=== PATIENT | female | born 1990 | race Caucasian/White ===

== ENCOUNTER 2017-12-20 09:43 | Emergency (ER) | payer SELFPAY ==
[2017-12-20 10:08] VITALS: BP 147/78
--- NOTE | 2017-12-20 11:14 | ED Physician Documentation ---
Upper Respiratory Symptoms - HISTORIAN Historian: patient - HPI Stated Complaint: short of air, cough, achy, pain in chest with cough Chief Complaint: Cough/ Upper Respiratory Additional Information: Patient developed some generalized heaviness in chest area. Today developed a cough, nonproductive in nature. Having some bilat chest pain with coughing. Having some green bloody nasal drainage. Has been having some low bialteral back pain, when she cough it radiates into the mid back area bilat. Having some achiness all over. No fever chills. Has been exposed to the flu. Onset: days ago (2 days) Context: denies: recent foreign travel Severity: moderate Associated Symptoms: shortness of breath (mild), hurts to breathe. denies: fever, chills, sweating, bloody cough, productive cough Worsened by Deep Breath: Yes Further Comments: no - ROS CONST/EYES: weakness MS/SKIN: denies: muscle aches, rash - PAST HX Lung Disease: none PE Risk Factors: none. denies: hypertension, hx DVT, recent surgery, bedridden , hx of PE Surgeries/Procedures: none Allergies/Adverse Reactions: Allergies Allergy/AdvReac Type Severity Reaction Status Date / Time acetaminophen [From Vicodin] Allergy Unverified 09/15/16 15:26 hydrocodone bitartrate Allergy Unverified 09/15/16 15:26 [From Vicodin] Home Medications: Ambulatory Orders Medication Instructions Recorded Azithromycin [Zithromax] 250 mg PO DIRECTED #6 tablet 12/20/17 - SOCIAL HX Smoking History: non-smoker, less than 1 pack/day Alcohol Use: none Drug Use: none - FAMILY HX Family History: no significant history - VITAL SIGNS Vital Signs: Vital Signs Temp Pulse Resp BP Pulse Ox 97.2 F L 89 20 147/78 96 12/20/17 14:47 12/20/17 14:47 12/20/17 14:47 12/20/17 14:47 12/20/17 14:47 - REVIEWED ASSESSMENTS Nursing Assessment Reviewed: Yes Vitals Reviewed: Yes ED Results Lab/Radiology - Lab Results Lab Results: Lab Results 12/20/17 12/20/17 12/20/17 12:45 12:45 11:15 WBC 8.10 K/ul K/ul (4.00-12.00) RBC 4.31 M/ul M/ul (3.90-5.20) Hgb 13.0 g/dL g/dL (12.0-16.0) Hct 38.4 % % (34.5-46.5) MCV 89.2 fl fl (80.0-100.0) MCH 30.2 pg pg (28.0-34.0) MCHC 33.8 g/dL g/dL (30.0-36.0) RDW 12.9 % % (11.3-14.3) Plt Count 212 K/mm3 K/mm3 (130-400) Neut % (Auto) 64.3 % % (39.0-79.0) Lymph % (Auto) 24.8 % % (16.0-50.0) [place] % (Auto) 3.9 % % (0.0-11.0) Eos % (Auto) 4.9 % % (0.0-6.8) Baso % (Auto) 0.7 (0.0-1.5) Neut # (Auto) 5.2 # k/uL # k/uL (1.4-7.7) Lymph # (Auto) 2.0 # k/uL # k/uL (0.6-4.0) [place] # (Auto) 0.3 # k/uL # k/uL (0.0-0.9) Eos # (Auto) 0.4 # k/uL # k/uL (0.0-0.6) Baso # (Auto) 0.1 # k/uL # k/uL (0.0-0.5) Reactive Lymphs % 1.3 % % (0.0-5.0) Reactive Lymphs # 0.1 # k/uL # k/uL (0.0-0.8) Sodium 142 mmol/L mmol/L (136-145) Potassium 3.9 mmol/L mmol/L (3.5-5.1) Chloride 104 mmol/L mmol/L (98-107) Carbon Dioxide 25 mmol/L mmol/L (22-30) BUN 13 mg/dL mg/dL (7-17) Creatinine 0.60 mg/dL mg/dL (0.52-1.04) Estimated Creat Clear 275 Est GFR ( Amer) > 60 (60 - ) Est GFR (Non-Af Amer) > 60 (60 - ) Glucose 80 mg/dL mg/dL (74-106) Calcium 9.5 mg/dL mg/dL (8.4-10.2) Total Bilirubin 0.6 mg/dL mg/dL (0.2-1.3) AST 20 U/L U/L (15-46) ALT 37 U/L U/L (13-69) Alkaline Phosphatase 88 U/L U/L (38-126) Total Protein 7.5 g/dL g/dL (6.3-8.2) Albumin 4.3 g/dL g/dL (3.5-5.0) Urine Color Yellow (YELLOW) Urine Appearance Clear (CLEAR) Urine pH 5.5 (5.0 - 8.0) Ur Specific [place] >=1.030 H (1.010-1.030) Urine Protein Negative mg/dL mg/dL (NEGATIVE) Urine Ketones Negative mg/dL mg/dL (NEGATIVE) Urine Occult Blood Trace-intact H (NEGATIVE) Urine Nitrite Negative (NEGATIVE) Urine Bilirubin Negative (NEGATIVE) Urine Urobilinogen 0.2 Eu Eu (0.2-1.0) Ur Leukocyte Esterase Trace H (NEGATIVE) Urine Glucose Negative mg/dL mg/dL (NEGATIVE) Urine HCG, Qual Negative (NEGATIVE) - Radiology Radiology Impressions: Examination: PA and lateral chest. History: Evaluate lung muir. Findings: PA lateral chest demonstrate a normal cardiac and mediastinal silhouette. No focal infiltrate. No blunting of the costophrenic margins. Osseous structures are appropriate for age. Impression: No acute pulmonary process. - Orders Orders: ED Orders Category Date Time Status CHEST P.A.&LAT 2 VIEWS [RAD] Routine Exams 12/20/17 Completed CBC/PLATELET/DIFF Routine Lab 12/20/17 12:45 Completed CMP Routine Lab 12/20/17 12:45 Completed UA MACRO DIP ONLY Routine Lab 12/20/17 11:15 Completed URINE HCG Routine Lab 12/20/17 11:15 Completed Upper Respiratory Symptoms - EXAM General Appearance: alert, mild distress EENT: eyes nml inspection, nml ENT inspection, ear nml, rhinorrhea (slight yellow), pharynx nml. No: pain over sinuses Neck: normal inspection, supple Respiratory: no resp. distress, breath sounds nml, no pain on inspiration, speaks full sentences CVS: reg rate & rhythm, heart sounds normal, equal pulses, no murmur Skin: color nml, no rash, warm,dry, cyanosis Extremities: non-tender, normal range of motion, no evidence of injury Neuro/Psych: oriented x3, neuro intact, mood/affect nml Discharge Clincal Impression: Bronchitis Prescriptions: Azithromycin [Zithromax] 250 mg PO DIRECTED #6 tablet Referrals: Slim Shell [Primary Care Provider] - 2 Days Additional Instructions: Drink a lot of fluids, take Azithromycin s directed. If you continue to have problems to follow-up with your primary care provider. Disposition: HOME, SELF-CARE Decision to Admit: NO Date of Decison to Admit: 12/20/17 Decision Time: 13:19
[2017-12-20 11:49] LABS: BASOPHILS % 0.7 (0.0-1.5); EOSINOPHILS % 4.9 % (0.0-6.8); MEAN CORPUSCULAR HEMOGLOBIN 30.2 pg (28.0-34.0); MEAN CORPUSCULAR VOLUME 89.2 fl (80.0-100.0); MONOCYTES % 3.9 % (0.0-11.0); NEUTROPHILS # 5.2 # k/uL (1.4-7.7)
[2017-12-20 12:07] LABS: eGFR (African) > 60; eGFR (Non-African) > 60
--- NOTE | 2017-12-20 12:40 | Diagnostic Imaging Report ---
MIGUEL ANGEL HIDALGO [facility] [address] [facility].[address] 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 History: Evaluate lung muir. Findings: PA lateral chest demonstrate a normal cardiac and mediastinal silhouette. No focal infiltrate. No blunting of the costophrenic margins. Osseous structures are appropriate for age. Impression: No acute pulmonary process. Electronically signed on Dec 20, 2017 12:28:05 PM TYPEWRITER ASSEMBLER by: Dawson MAGANA
[2017-12-20 17:55] LABS: APPEARANCE,URINE CLEAR (CLEAR); COLOR,URINE YELLOW (YELLOW); OCCULT BLOOD,URINE TRACE-INTACT (NEGATIVE); PH URINE 5.5 (5.0 - 8.0)
[2017-12-20 17:56] LABS: URINE HCG NEGATIVE (NEGATIVE); UROBILINOGEN URINE 0.2 Eu (0.2-1.0)
== END 2017-12-20 14:47 | disposition home or self-care (01) ==
LOC: ED 09:43
DX: J40 Bronchitis, not specified as acute or chronic (principal); Z20.828 Contact with and (suspected) exposure to other viral communicable diseases
CPT/HCPCS: 71020; 80053; 81002; 81025; 85025; 99282; S1016

== ENCOUNTER 2019-06-02 14:42 | Emergency (ER) | payer SELFPAY ==
--- NOTE | 2019-06-02 15:07 | ED Physician Documentation ---
Ear Complaints - HISTORIAN Historian: patient - HPI Stated Complaint: Right ear pain Chief Complaint: Earache Additional Information: Patient presents to ED with right ear pain x 1 week. She was prescribed Ciprodex for otitis externa but could not afford it so she came to ED. Timing: still present Location of Pain: R ear Severity: mild Associated Symptoms: denies: fever - ROS CONST: no problems CVS/RESP: none GI/: denies: nausea, vomiting MS/SKIN/LYMPH: none NEURO/PSYCH: none - PAST HX Past History: none Allergies/Adverse Reactions: Allergies Allergy/AdvReac Type Severity Reaction Status Date / Time acetaminophen [From Vicodin] Allergy Verified 06/02/19 15:04 hydrocodone bitartrate Allergy Verified 06/02/19 15:04 [From Vicodin] Home Medications: Ambulatory Orders Medication Instructions Recorded Neomycin/Polymyxin B/Hydrocort 10 ml OT TID #1 bottle 06/02/19 [Cortisporin Otic] - SOCIAL HX Smoking History: non-smoker Alcohol Use: none Drug Use: none - FAMILY HX Family History: No - VITAL SIGNS Vital Signs: Vital Signs Temp Pulse Resp BP Pulse Ox 99.2 F 108 H 16 158/86 99 06/02/19 14:42 06/02/19 14:42 06/02/19 14:42 06/02/19 14:42 06/02/19 14:42 - REVIEWED ASSESSMENTS Nursing Assessment Reviewed: Yes Vitals Reviewed: Yes Ear Complaint Physical Exam - EXAM General Appearance: no acute distress, alert Ear: pain w movement of auricl, right, swelling of canal Mouth/Throat: pharynx nml Nose: nml inspection Head/Neck: atraumatic, neck nml inspection Eye: eyes nml inspection, PERRL Resp/CVS: chest non-tender, breath sounds nml, heart sounds nml Abdomen: non-tender Skin: nml color Neuro/Psych: oriented x3 Discharge Clincal Impression: Otitis externa Qualifiers: Otitis externa type: swimmer's ear Chronicity: acute Laterality: right Qualified Code(s): H60.331 - Swimmer's ear, right ear Prescriptions: Neomycin/Polymyxin B/Hydrocort [Cortisporin Otic] 10 ml OT TID #1 bottle Referrals: Primary Doctor,No [Primary Care Provider] - 2 Days Additional Instructions: 1. Use ear drops in affected ear x 10 days 2. Dry ears after swimming and bathing to prevent future infections 3. Follow up with PCP within 1 week 4. Return to ER for new or worsening symptoms Condition: Stable Disposition: 01 HOME, SELF-CARE Decision to Admit: NO Date of Decison to Admit: 06/02/19 Decision Time: 15:08
[2019-06-02 15:17] VITALS: BP 142/81
== END 2019-06-02 15:15 | disposition home or self-care (01) ==
LOC: ED 14:42
DX: H60.331 Swimmer's ear, right ear (principal); H66.91 Otitis media, unspecified, right ear

== ENCOUNTER 2019-12-01 17:32 | Emergency (ER) | payer OTHER ==
--- NOTE | 2019-12-01 17:46 | ED Physician Documentation ---
General Adult - HPI Chief Complaint: General Adult Additional Information: 2 day history of skin lesion to the left buttocks. Has been getting bigger. Feels feverish with body aches. Has had MRSA 3 times. Onset: days ago (2 days) Timing: still present - ROS CONST: fever (???). denies: sweating, chills - PAST HX Past History: none (Marixa's thyroiditis) Allergies/Adverse Reactions: Allergies Allergy/AdvReac Type Severity Reaction Status Date / Time acetaminophen [From Vicodin] Allergy Verified 12/01/19 17:44 hydrocodone bitartrate Allergy Verified 12/01/19 17:44 [From Vicodin] Home Medications: Ambulatory Orders Medication Instructions Recorded Doxycycline Hyclate 100 mg PO BID #20 tablet 12/01/19 - SOCIAL HX Smoking History: less than 1 pack/day (1/2 ppd) Alcohol Use: rarely Drug Use: none - FAMILY HX Family History: No - VITAL SIGNS Vital Signs: Vital Signs Temp Pulse Resp BP Pulse Ox 142/81 06/02/19 15:15 - REVIEWED ASSESSMENTS Vitals Reviewed: Yes General Adult Physical Exam - PHYSICAL EXAM GENERAL APPEARANCE: mild distress NECK: normal inspection CVS: reg rate & rhythm, heart sounds normal, equal pulses SKIN: other (area of induration to the left buttocks, 3.5cm in diameter. Tender to touch. No fluctuance noted at this time. ) NEURO: oriented X3, cognition normal Discharge Clincal Impression: Cellulitis of buttock, left Referrals: Primary Doctor,No [Primary Care Provider] - 2 Days Additional Instructions: Continue with warm compress/ warm bathes. Take doxycycline twice a day as advised. It symptoms progress the lesion may need to be lanced and drained. Condition: Stable Disposition: HOME, SELF-CARE Decision to Admit: NO Date of Decison to Admit: 12/01/19 Decision Time: 17:51
[2019-12-01 18:03] VITALS: BP 148/98
== END 2019-12-01 18:03 | disposition home or self-care (01) ==
LOC: ED 17:32
DX: L03.317 Cellulitis of buttock (principal)
CPT/HCPCS: 99282